=== PATIENT | female | born 1960 | race Caucasian/White ===

== ENCOUNTER → 2017-11-16 | Outpatient (CLI) | payer OTHER ==
[~2017-11-16] MED LIST: CYMBALTA60 MG PO; D3 DOTS2000 UNIT PO; FLEXERIL PO; FLOMAX0.4 MG PO; IBUPROFEN; MIRALAX17 GM PO; MOBIC15 MG PO; NEURONTIN 300300 M1 PO; NEURONTIN600 MG PO; NORCO 5-325 TA1 EACH PO; ONDANSETRON HCL4 M2 SUBLING; PEPCID20 MG PO; PRILOSEC 20 MG20 MG PO; TRAMADOL 50 MG50 MG PO; TUMS PO; ULTRAM 50MG TAB50 MG PO; ZYRTEC10 M2 PO
--- NOTE | 2017-11-18 10:54 | TST ---
[place] [address] TREADMILL STRESS TEST Name: ARIANNAYI Room: [facility]#: [id number] Admission: 11/16/17 Attend Phys: Viktoriya Glaser, Discharge: Date of : 62 Date of Service: 11/16/17 1615 Report #: [id number] THIS REPORT FOR: //name// CC: ESSENCE Glaser DATE OF SERVICE: 11/16/2017 ORDERING PHYSICIAN: Viktoriya Glaser MD . INDICATION: Chest pain, shortness of breath. CHRONIC ISSUES: Negative. RISK FACTORS: Include age. No cardiac medications. The patient exercised for 6 minutes 42 seconds, achieved 93.9%, age-predicted maximal heart rate at mets 8.07. The test was terminated due to chest discomfort and shortness of breath. Resting blood pressure is 127/85 with heart rate of 60. Peak blood pressure is 165/98 with a heart rate of 154. The recovery blood pressure was 139/86, heart rate is 82. Resting ECG demonstrates a sinus rhythm. During the exercise, occasional PVCs were noted. There were no ST segment changes as compared to the baseline. Recovery was normal. IMPRESSION: 1. Clinical portion was positive. 2. Electrocardiographic portion was negative. 3. Exercise capacity is reduced. CONCLUSION: This study reveals no evidence of ischemia at the level of exercise achieved; however, the patient has a poor functional capacity and clinical correlation is recommended. The patient may not have reached an ischemic threshold. Pharmacologic, stress test may he helpful <ELECTRONICALLY SIGNED> By: Vic Watters MD, FACC 11/18/17 1054 1615 1811 Vic Watters MD, FACC /nt
== END ==
LOC: M.CRD 11-04 13:00
DX: R07.9 Chest pain, unspecified (principal); R06.02 Shortness of breath

== ENCOUNTER → 2019-09-21 | Outpatient (CLI) | payer OTHER | LOC: M.MRI 12:48 | DX: M51.16 Intervertebral disc disorders with radiculopathy, lumbar region (principal); M41.86 Other forms of scoliosis, lumbar region; M85.68 Other cyst of bone, other site; M51.35 Other intervertebral disc degeneration, thoracolumbar region; M51.25 Other intervertebral disc displacement, thoracolumbar region; M25.78 Osteophyte, vertebrae; M48.05 Spinal stenosis, thoracolumbar region; M43.8X4 Other specified deforming dorsopathies, thoracic region ==

== ENCOUNTER → 2019-09-26 | Outpatient (CLI) | payer OTHER ==
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
== END | disposition home or self-care (01) ==
LOC: M.PC 03:31
DX: M54.16 Radiculopathy, lumbar region (principal); G89.29 Other chronic pain; M19.90 Unspecified osteoarthritis, unspecified site; J45.909 Unspecified asthma, uncomplicated; D64.89 Other specified anemias; F32.9 Major depressive disorder, single episode, unspecified; K21.9 Gastro-esophageal reflux disease without esophagitis; M79.7 Fibromyalgia; Z98.890 Other specified postprocedural states; Z79.899 Other long term (current) drug therapy; Z87.19 Personal history of other diseases of the digestive system; Z87.442 Personal history of urinary calculi; Z90.49 Acquired absence of other specified parts of digestive tract

== ENCOUNTER → 2019-10-31 | Outpatient (CLI) | payer OTHER ==
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
== END | disposition home or self-care (01) ==
LOC: M.PC 04:18
DX: M54.16 Radiculopathy, lumbar region (principal); G89.29 Other chronic pain; M79.7 Fibromyalgia; Z98.890 Other specified postprocedural states; Z79.899 Other long term (current) drug therapy; Z87.442 Personal history of urinary calculi

== ENCOUNTER → 2020-01-09 | Outpatient (CLI) | payer OTHER | END | disposition home or self-care (01) | LOC: M.PC 05:14 | DX: M54.16 Radiculopathy, lumbar region (principal); G89.29 Other chronic pain ==

== ENCOUNTER → 2021-09-23 | Outpatient (CLI) | payer OTHER | LOC: M.LAB 13:56 | PROVIDERS: ATTEND Orthopaedic Surgery | DX: Z01.812 Encounter for preprocedural laboratory examination (principal); Z20.822 Contact with and (suspected) exposure to COVID-19 ==